=== PATIENT | male | born 1995 | race Caucasian/White ===

== ENCOUNTER 2020-07-27 02:36 | Emergency (ER) | payer OTHER, BC ==
[~2020-07-27] VITALS: Ht 165.1 cm; Wt 77.1 kg
[2020-07-27] MEDS ORDERED: Amlodipine Besyl5 MG PO (02:48)
[2020-07-27] MEDS ORDERED: LEVSOD25 PO (02:48)
[2020-07-27] MEDS ORDERED: Clomiphene Citr50 MG PO (02:48)
[2020-07-27] MEDS ORDERED: Aspir 8181 MG PO (02:48)
[2020-07-28 07:09] LABS: HCV ANTIBODY 0.1 (0.0-0.9); HIV SCREEN 4TH GENERATION WRFX Non Reactive (Non Reactive)
== END 2020-07-27 03:45 | disposition home or self-care (01) ==
LOC: ER 02:36
PROVIDERS: Emergency Medicine
DX: Z77.21 Contact with and (suspected) exposure to potentially hazardous body fluids (principal); I10 Essential (primary) hypertension; Z79.82 Long term (current) use of aspirin; Z79.899 Other long term (current) drug therapy; Z88.8 Allergy status to other drugs, medicaments and biological substances
CPT/HCPCS: 36415; 84460; 86317; 86803; 87389; 99283